=== PATIENT | male | born 1985 | race Caucasian/White ===

== ENCOUNTER 2017-04-09 17:04 | Inpatient (IN) | payer BC ==
[2017-04-09] MEDS ORDERED: DIPH,PERTUS(ACELL)TETVAC-LF 0.5 ML VIAL IM ONE (17:27)
[2017-04-09] MEDS ORDERED: HYDROmorphone 2 MG/ML 1 ML SYRINGE IVP STA ×2 (17:28→19:28)
[2017-04-09] MEDS ORDERED: ceFAZolin 2,000 MG in DEXTROSE/WATER 1 50ML.BAG IVPB STA (17:28)
[2017-04-09] MEDS ORDERED: ceFAZolin IN SWFI 2 GM/20 ML SYRINGE IVP ONE ×2 (17:30→22:30)
--- NOTE | 2017-04-09 17:32 | ED ---
General Adult HPI - General Chief complaint: Wound/Laceration Stated complaint: Laceration Time Seen by Provider: 04/09/17 17:13 Source: patient, family, RN notes reviewed, old records reviewed Mode of arrival: ambulatory Limitations: no limitations - History of Present Illness Initial comments: This is a 31-year-old male presents emergency Department chief complaint of right knee laceration. Patient reports that he was up and cutting down branches from a tree. He reports that he was approximately 60 feet high. He reports that he was using a chainsaw, and chainsaw came down and lacerated the lateral aspect of his right knee. He reports is painful with range of motion. He does report he has full range of motion in the toes and foot and ankle. Denies any numbness or tingling. His tetanus shot is not up-to-date. He reports that he slowly decline from the tree, did not have any falls or other injuries associated with this accident. Patient states that he has had previous orthopedic surgeries by Dr. Carrington. Patient denies any recent fever , chills, shortness of breath, chest pain, back pain, abdominal pain, nausea vomiting, numbness or tingling, dysuria or hematuria, constipation or diarrhea, headaches or visual changes, or any other current symptoms - Related Data Home Medications Medication Instructions Recorded Confirmed No Known Home Medications [No 04/09/17 04/09/17 Known Home Medications] Allergies Allergy/AdvReac Type Severity Reaction Status Date / Time No Known Allergies Allergy Verified 04/09/17 17:36 Review of Systems ROS Statement: Those systems with pertinent positive or pertinent negative responses have been documented in the HPI. ROS Other: All systems not noted in ROS Statement are negative. Past Medical History Past Medical History: Musculoskeletal Disorder, Seizure Disorder Additional Past Medical History / Comment(s): "SPORT-INJURY SEIZURE 2000". LT DISTAL BICEPS TENDON RUPTURE. History of Any Multi-Drug Resistant Organisms: None Reported Past Surgical History: Orthopedic Surgery Additional Past Surgical History / Comment(s): WISDOM TEETH. RT SHOULDER SURGERY Past Anesthesia/Blood Transfusion Reactions: No Reported Reaction Past Psychological History: Anxiety Smoking Status: Never smoker Past Alcohol Use History: Occasional Past Drug Use History: None Reported - Past Family History Mother Family Medical History: No Reported History General Exam - General Exam Comments Initial Comments: This patient is a 31-year-old male. No acute distress. Limitations: no limitations General appearance: alert, in no apparent distress Head exam: Present: atraumatic, normocephalic, normal inspection Eye exam: Present: normal appearance, PERRL, EOMI. Absent: scleral icterus, conjunctival injection, periorbital swelling ENT exam: Present: normal exam, mucous membranes moist Neck exam: Present: normal inspection. Absent: tenderness, meningismus, lymphadenopathy Respiratory exam: Present: normal lung sounds bilaterally. Absent: respiratory distress, wheezes, rales, rhonchi, stridor Cardiovascular Exam: Present: regular rate, normal rhythm, normal heart sounds. Absent: systolic murmur, diastolic murmur, rubs, gallop, clicks GI/Abdominal exam: Present: soft, normal bowel sounds. Absent: distended, tenderness, guarding, rebound, rigid Extremities exam: Present: full ROM, normal capillary refill. Absent: normal inspection, tenderness, pedal edema, joint swelling, calf tenderness Right Upper Leg exam: Present: normal inspection, full ROM Knee exam: Present: laceration (12 cm laceration over the lateral aspect of the right knee. Underneath the patella. Patient does have some flexion and extension within the knee.). Absent: normal inspection Lower Leg exam: Present: normal inspection, full ROM Ankle exam: Present: normal inspection, full ROM Neurovascular tendon exam: Present: no vascular compromise Back exam: Present: normal inspection Neurological exam: Present: alert Psychiatric exam: Present: normal affect, normal mood Skin exam: Present: warm, dry, intact, normal color. Absent: rash Course Vital Signs 04/09/17 04/09/17 17:10 18:44 Temperature 98 F Pulse Rate 107 H 96 Respiratory 18 18 Rate Blood Pressure 104/60 123/73 O2 Sat by Pulse 99 99 Oximetry Procedures - Laceration Laceration #1 Site: lower extremity (right knee) Size (cm): 8 Description: irregular Depth: involves muscle layer Anesthetic Used: benzocaine 0.25% Anesthesia Technique: local infiltration Amount (mls): 15 Pre-repair: wound explored, irrigated extensively Type of Sutures: nylon, vicryl Size of Sutures: 3-0 Number of Sutures: 12 (6 burried vicryl sutures, 6 nylon sutures) Complications: pain Patient Tolerated Procedure: well, no complications Medical Decision Making - Medical Decision Making This patient is a 31-year-old male presents with right knee laceration after he had an chain saw injury 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 Patient's laceration measures approximately 8 cm. X-rays are reviewed and negative for any bony abnormalities. He did have some air in the prepatellar bursa. Patient does have approximately 15 of flexion and is able to extend the knee. Patient's wound was thoroughly irrigated, and I used 6-0 Vicryl sutures as well as 6 nylon sutures to loosely approximate the wound. I did attempt to debride the necrotic skin around the area as well. Case discussed with Dr. Nathalia Barajas is physician housing assistant Gamal balderrama. We will admit the patient at this time and they will take him to surgery tomorrow afternoon for wound debridement and irrigation. Patient was given IV Kefzol. An updated on his tetanus shot. - Lab Data Result diagrams: 04/09/17 17:40 04/09/17 17:40 Lab Results 04/09/17 04/09/17 04/09/17 Range/Units 17:40 17:40 17:40 WBC 6.9 (3.8-10.6) k/uL RBC 5.41 (4.30-5.90) m/uL Hgb 15.4 (13.0-17.5) gm/dL Hct 48.1 (39.0-53.0) % MCV 88.9 (80.0-100.0) fL MCH 28.5 (25.0-35.0) pg MCHC 32.0 (31.0-37.0) g/dL RDW 15.0 (11.5-15.5) % Plt Count 241 (150-450) k/uL Neutrophils % 74 % Lymphocytes % 18 % Monocytes % 5 % Eosinophils % 1 % Basophils % 1 % Neutrophils # 5.1 (1.3-7.7) k/uL Lymphocytes # 1.3 (1.0-4.8) k/uL Monocytes # 0.3 (0-1.0) k/uL Eosinophils # 0.1 (0-0.7) k/uL Basophils # 0.0 (0-0.2) k/uL PT 9.7 (9.0-12.0) sec INR 1.0 (<1.2) APTT 21.0 L (22.0-30.0) sec Sodium 140 (137-145) mmol/L Potassium 3.8 (3.5-5.1) mmol/L Chloride 102 (98-107) mmol/L Carbon Dioxide 26 (22-30) mmol/L Anion Gap 12 mmol/L BUN 17 (9-20) mg/dL Creatinine 1.02 (0.66-1.25) mg/dL Est GFR (MDRD) Af Amer >60 (>60 ml/min/1.73 sqM) Est GFR (MDRD) Non-Af >60 (>60 ml/min/1.73 sqM) Glucose 143 H (74-99) mg/dL Calcium 9.9 (8.4-10.2) mg/dL - Radiology Data Radiology results: report reviewed Soft tissue air within the suprapatellar bursa. No fracture seen. No evidence of foreign body. Disposition Clinical Impression: Laceration of right knee Disposition: ADMITTED IP TO THIS [facility] Condition: Good Referrals: Megan Oliveira DO [Primary Care Provider] - 1-2 days Time of Disposition: 19:43
[2017-04-09 17:51] LABS: Basophils % (A) 1 %; Eosinophils # (A) 0.1 k/uL (0-0.7); Eosinophils % (A) 1 %; HCT 48.1 % (39.0-53.0); HGB 15.4 gm/dL (13.0-17.5); Lymphocytes # (A) 1.3 k/uL (1.0-4.8); Lymphocytes % (A) 18 %; MCH 28.5 pg (25.0-35.0); MCV 88.9 fL (80.0-100.0); Mean Platelet Volume 7.5; Monocytes # (A) 0.3 k/uL (0-1.0); Monocytes % (A) 5 %; Neutrophils # (A) 5.1 k/uL (1.3-7.7); Neutrophils % (A) 74 %; Platelet Count 241 k/uL (150-450); RBC 5.41 m/uL (4.30-5.90); WBC 6.9 k/uL (3.8-10.6)
[2017-04-09 18:03] LABS: Anion Gap 12 mmol/L; Blood Urea Nitrogen 17 mg/dL (9-20); Calcium 9.9 mg/dL (8.4-10.2); Carbon Dioxide 26 mmol/L (22-30); Chloride 102 mmol/L (98-107); Glucose 143 mg/dL (74-99); Potassium 3.8 mmol/L (3.5-5.1); Sodium 140 mmol/L (137-145)
--- NOTE | 2017-04-09 18:19 | XR ---
EXAMINATION TYPE: XR knee complete RT DATE OF EXAM: 04/09/2017 COMPARISON: NONE HISTORY: Knee pain TECHNIQUE: 3 views FINDINGS: I see no fracture nor dislocation. There is air in the suprapatellar region consistent with air within the knee joint space. There is probably a knee joint effusion. Joint spaces are normal. IMPRESSION: Soft tissue air within the suprapatellar bursa. No fracture seen. No evidence of a foreig n body.
[2017-04-09 18:23] LABS: Prothrombin Time 9.7 sec (9.0-12.0)
[2017-04-09] MEDS ORDERED: HYDROmorphone 1 MG/ML 1 ML SYRINGE IVP STA (19:28)
[2017-04-09] MEDS ORDERED: BUPIVACAINE (PF) 0.5% 30 ML VIAL SQ STA (19:28)
[2017-04-09] MEDS ORDERED: HYDROmorphone 0.5 MG/0.5 ML SYRINGE IVP STA (19:30)
[2017-04-09] MEDS ORDERED: ONDANSETRON 4 MG/2 ML VIAL IVP PRN (19:43)
[2017-04-09] MEDS ORDERED: IBUPROFEN 400 MG TAB PO PRN (19:43)
[2017-04-09] MEDS ORDERED: NALOXONE 0.4 MG/ML 1 ML VIAL IV PRN (19:43)
[2017-04-09] MEDS ORDERED: HYDROmorphone 2 MG/ML 1 ML SYRINGE IVP PRN (19:43)
[2017-04-09] MEDS ORDERED: HYDROmorphone 0.5 MG/0.5 ML SYRINGE IVP PRN (19:43)
[2017-04-09] MEDS: KETOROLAC 30 MG/ML 1 ML VIAL IVP PRN (23:13)
[2017-04-09] MEDS: SODIUM CHLORIDE 0.9% 1,000 ML IV SCH (23:21)
[2017-04-09 23:50] VITALS: BMI 35.4
[2017-04-10] MEDS: KETOROLAC 30 MG/ML 1 ML VIAL IVP PRN (04:56)
[2017-04-10] MEDS ORDERED: ceFAZolin IN SWFI 2 GM/20 ML SYRINGE IVP ONE ×2 (05:30→13:00)
[2017-04-10] MEDS: PANTOPRAZOLE 40 MG/10 ML VIAL IV SCH (09:07)
[2017-04-10] MEDS: SODIUM CHLORIDE 0.9% 1,000 ML IV SCH ×2 (09:07→17:01)
--- NOTE | 2017-04-10 13:09 | P.HPOR ---
History of Present Illness H&P Date: 04/10/17 Chief Complaint: right lateral knee laceration 31-year-old patient sustained an injury to the lateral aspect of his right knee yesterday. Apparently he was cutting down some branches with a chainsaw and the chainsaw hit the lateral aspect of the right knee causing a traumatic injury. Patient only reports pain in the right lateral knee area at this time. The patient denies any other pain or problems at this point. Review of Systems Constitutional: Reports as per HPI Past Medical History Past Medical History: Musculoskeletal Disorder, Seizure Disorder Additional Past Medical History / Comment(s): "SPORT-INJURY SEIZURE 2000". LT DISTAL BICEPS TENDON RUPTURE. Right shoulder surgery. History of Any Multi-Drug Resistant Organisms: None Reported Past Surgical History: Orthopedic Surgery Additional Past Surgical History / Comment(s): WISDOM TEETH. RT SHOULDER SURGERY Past Anesthesia/Blood Transfusion Reactions: No Reported Reaction Past Psychological History: Anxiety Smoking Status: Never smoker Past Alcohol Use History: Occasional Additional Past Alcohol Use History / Comment(s): Former CHEW TOBACCO DAILY quit 2 years ago. Past Drug Use History: None Reported - Past Family History Mother Family Medical History: No Reported History Medications and Allergies Home Medications Medication Instructions Recorded Confirmed Type No Known Home Medications [No 04/09/17 04/09/17 History Known Home Medications] Allergies Allergy/AdvReac Type Severity Reaction Status Date / Time No Known Allergies Allergy Verified 04/09/17 17:36 Physical Examination Osteopathic Statement: *. No significant issues noted on an osteopathic structural exam other than those noted in the History and Physical/Consult. there is approximately 12 cm jagged laceration over the lateral aspect of the right knee. This difficult to assess the depth of the laceration. Patient is able to extend the knee actively. Homans and Jayme negative. Patient is able to move his ankle and toes with no pain. Distal neurovascular exam appears intact. Logrolling of the right hip is without pain. Results - Labs Labs: Abnormal Lab Results - Last 24 Hours (Table) 04/09/17 04/09/17 Range/Units 17:40 17:40 APTT 21.0 L (22.0-30.0) sec Glucose 143 H (74-99) mg/dL H & H 04/09/17 Range/Units 17:40 Hgb 15.4 (13.0-17.5) gm/dL Hct 48.1 (39.0-53.0) % Coagulation 04/09/17 Range/Units 17:40 INR 1.0 (<1.2) Result Diagrams: 04/09/17 17:40 04/09/17 17:40 - Diagnostic results Knee x-ray: report reviewed, image reviewed (no acute osseous abnormality identified.) Assessment and Plan Assessment: Lateral right knee area traumatic laceration Plan: Proceed with surgical exploration of the wound with irrigation debridement and repair I did review the procedure, risks, complications and recovery. All questions were answered with the patient and his family's satisfaction. Time with Patient: Less than 30
[2017-04-10] MEDS ORDERED: ceFAZolin 3,000 MG in SODIUM CHLORIDE 0.9% IRRIGATIO 3,000 ML IRRIGATION ONE ×4 (13:30)
[2017-04-10] MEDS ORDERED: IV FLUID CONTINUATION 1,000 ML IV ONE ×2 (13:30)
[2017-04-10] MEDS ORDERED: HYDROmorphone (PF) 1 MG/ML ONE (14:00)
[2017-04-10] MEDS ORDERED: LIDOCAINE 1% INJ 10MG/ML (20 ML MDV) ONE (14:00)
[2017-04-10] MEDS ORDERED: SUCCINYLCHOLINE CHLORIDE 100 MG/5 ML SYR IV ONE (14:00)
[2017-04-10] MEDS ORDERED: MIDAZOLAM 2 MG/2 ML VIAL ONE (14:00)
[2017-04-10] MEDS ORDERED: PROPOFOL 10 MG/ML 20 ML VIAL IV ONE (14:00)
[2017-04-10] MEDS ORDERED: fentaNYL (PF) 50 MCG/ML 2 ML AMP ONE (14:00)
[2017-04-10] MEDS ORDERED: LACTATED RINGERS 1,000 ML IV ONE (14:00)
[2017-04-10] MEDS ORDERED: BUPIVACAINE (PF) 0.5% 30 ML VIAL SQ ONE (14:34)
[2017-04-10] MEDS ORDERED: ONDANSETRON 4 MG/2 ML VIAL IVP PRN (14:56)
[2017-04-10] MEDS ORDERED: HYDROcodone/APAP 5-325MG 1 EACH TAB PO PRN (14:56)
[2017-04-10] MEDS ORDERED: hydrOXYzine PAMOATE 25 MG CAP PO PRN (14:56)
[2017-04-10] MEDS ORDERED: HYDROmorphone 2 MG/ML 1 ML SYRINGE IVP PRN (14:56)
[2017-04-10] MEDS ORDERED: HYDROmorphone 0.5 MG/0.5 ML SYRINGE IVP PRN ×2 (14:56)
--- NOTE | 2017-04-10 14:56 | P.OP ---
Date of Procedure: 04/10/17 Preoperative Diagnosis: Right lateral knee laceration Postoperative Diagnosis: 1. Right knee lateral retinacular laceration/tear 2. Right lateral knee 12 cm skin laceration Procedure(s) Performed: 1. Repair right knee lateral retinacular tear/laceration 2. Repair right knee 12 cm skin laceration 3. Irrigation and incisional debridement right lateral knee wound Anesthesia: RADHAA, local Surgeon: Melvin Lorenzo Estimated Blood Loss (ml): 10 Pathology: none sent Condition: stable Disposition: PACU Indications for Procedure: 31-year-old patient seen with a traumatic right lateral knee laceration. I recommended exploration with irrigation debridement and repair. I reviewed the procedure, risks, complications and recovery. Patient was agreeable and consent was obtained. Operative Findings: see description of procedure Description of Procedure: The patient was taken to the operative suite. Patient underwent a general anesthetic by the department of anesthesia. The patient received preoperative IV antibiotics. A well-padded tourniquet was placed on the proximal right thigh. The right lower extremity was now prepped and draped in the normal sterile orthopedic fashion. We now explored our lateral laceration which was about a 12 cm jagged laceration just along the lateral aspect of the knee. Upon further deep exploration there was a traumatic laceration of the lateral retinaculum measuring approximately 4 cm. There was communication into the joint. I now irrigated the wound with pulse lavage mechanical irrigation. I irrigated with that small retinacular defect the joint itself as well. I now irrigated the whole wound out including intra-articular with Irricept. Once that had set for greater than a couple of minutes I irrigated the wound out again including intra-articular with pulse lavage mechanical irrigation. I now debrided the jagged skin laceration utilizing a #15 blade performing an incisional debridement of the skin margins and directly subcutaneous soft tissues. I now explored the lateral retinacular defect one more time and that was repaired utilizing #1 Vicryl. I took the knee through range of motion and noted good stability of my lateral retinacular repair. I now meticulously repaired the subcutaneous soft tissues with 2-0 Vicryl. I now repaired the skin laceration with skin eboni. I infiltrated the subcutaneous soft tissues with half percent plain Marcaine totaling 25 mL. I applied sterile dressings followed by loose web roll and Jorje bandage. No tourniquet was utilized. The patient was awakened, transferred to a bed and then recovery in stable condition.
[2017-04-10] MEDS: HYDROcodone/APAP 5-325MG 1 EACH TAB PO PRN (17:17)
[2017-04-10] MEDS: ceFAZolin IN SWFI 2 GM/20 ML SYRINGE IVP SCH (17:17)
[2017-04-10] MEDS: LACTATED RINGERS 1,000 ML IV SCH (17:18)
[2017-04-10] MEDS: IBUPROFEN 800 MG TAB PO PRN (20:49)
[2017-04-11] MEDS: ceFAZolin IN SWFI 2 GM/20 ML SYRINGE IVP SCH (00:25)
[2017-04-11] MEDS: LACTATED RINGERS 1,000 ML IV SCH ×2 (03:16→08:26)
[2017-04-11 07:22] VITALS: BP 123/80; PULSE 80; RESP 14; TEMP 97.8
[2017-04-11] MEDS: HYDROcodone/APAP 5-325MG 1 EACH TAB PO PRN (07:29)
[2017-04-11] MEDS: PANTOPRAZOLE 40 MG/10 ML VIAL IV SCH (07:30)
[2017-04-11] MEDS ORDERED: ENOXAPARIN 40 MG/0.4 ML SYRINGE SQ SCH (09:00)
[2017-04-11] MEDS: IBUPROFEN 800 MG TAB PO PRN (09:58)
--- NOTE | 2017-04-11 10:35 | P.PN ---
Subjective Progress Note Date: 04/11/17 Principal diagnosis: Status post irrigation and debridement and laceration repair right knee Patient seen today resting in his hospital bed, he appears comfortable. His family is present with him at bedside. He notes more stiffness along the lateral and posterior aspect of the knee. He denies any chest pain, shortness of breath, fever or chills. Objective - Vital Signs Vital signs: Vital Signs Temp 97.8 F 04/11/17 07:19 Pulse 80 04/11/17 07:19 Resp 14 04/11/17 07:19 BP 123/80 04/11/17 07:19 Pulse Ox 97 04/11/17 07:19 Intake & Output 04/10/17 04/11/17 04/11/17 18:59 06:59 18:59 Intake Total 901 800 Output Total 10 Balance 891 800 Intake: IV 301 Intake, IV Titration 600 800 Amount Lactated Ringers 1,000 ml 800 @ 100 mls/hr IV .Q10H DELISA Rx#:[id number] Sodium Chloride 0.9% 1, 600 000 ml @ 120 mls/hr IV . Q8H20M DELISA Rx#:[id number] Output: Estimated Blood Loss 10 Other: Voiding Method Urinal # Voids 1 2 - Exam Right lower extremity: Initial postop bandages in place with Jorje bandage. No significant swelling noted in the foot and ankle. His calf is soft, no tenderness with palpation. His dorsal pedis pulses 2+, sensory exam to light touch is intact. - Labs CBC & Chem 7: 04/09/17 17:40 04/09/17 17:40 Assessment and Plan Plan: Assessment: 1. Postop day #1 status post irrigation and debridement and laceration repair right knee Plan: 1. Pain control, oral pain medication along with Motrin will be used postop 2. Weight-bear as tolerated, utilize walker or crutches 3. Wound care instructions were discussed 4. Activity restrictions were discussed 5. Patient stable for discharge home today Time with Patient: Less than 30
--- NOTE | 2017-04-11 10:40 | P.DS ---
Providers Date of admission: 04/09/17 20:39 Expected date of discharge: 04/11/17 Attending physician: Melvin Lorenzo Primary care physician: Megan Oliveira Hospital Course: Date of admission: 04/10/2017 Date of discharge: 04/11/2017 Admission diagnosis: Right knee laceration Discharge diagnosis: Status post irrigation and debridement right lateral knee, laceration repair, medial retinacular repair Attending physician: Dr. Lorenzo Surgical procedures: Irrigation and debridement right lateral knee, laceration repair and medial retinacular repair Brief history: Patient is a 31-year-old male who was seen and evaluated at [facility] emergency room on 04/09/2017 after sustaining a work injury involving a chain saw. He had a laceration on the lateral aspect of his right knee. I was contacted by the emergency room staff regarding this patient, the case was discussed. Was determined he would need a surgical intervention, including irrigation and debridement along with repair of the laceration in the operating room. He was scheduled for this procedure on 04/10/2017. Hospital course: Details of patient's surgery can be found in operative report. Patient tolerated the procedure well and was subsequently transported to orthopedic floor. Patient's orthopeidc and medical care was provided daily. Patient had daily laboratory tests performed for evaluation of overall blood counts. Patient had daily physical therapy to include strengthening range of motion as well as education with walker ambulation. Patient was treated with Lovenox for their postoperative DVT prophylaxis during their inpatient stay. Patient was noted to have a relatively uneventful postoperative course. Patient reported satisfactory pain control with oral pain medications by postoperative day 0. Patient showed satisfactory progress with physical therapy. Patient moved steadily through the program and had no difficulty meeting the goals by postoperative day 1. Given patient's otherwise satisfactory course and having met physical therapy goals, plan is to discharge patient home on postoperative day 1. Discharge condition/disposition: Patient will be discharged home in stable condition. Discharge medications: Instructions are given on resumption of patient's normal daily medications per primary care recommendation, in addition patient will be prescribed [place] 5 mg/325 mg, Motrin 800 mg, Keflex 500mg. Discharge instructions: 1. Wound care and infection precautions, keep incision dry and covered while showering, no lotions, creams, moisturizers. No soaking, tubs, pools, hottubs. Do not scrub over the incision. 2. Weight-bear as tolerated with walker / cane until follow-up. 3. Ice and elevate when necessary. Do not exceed 20 minutes per hour with ice pack. 5. Pain meds and anticoagulants per prescription. 6. Pain medication has potential to cause constipation. Increase oral fluid and fiber intake. Contact primary care provider if you have not had a bowel movement within 48 hours after discharge 7. Follow up in office at 2 weeks postop with Gamal Corona PA-C 8. Follow up with your primary care doctor 7-10 days after discharge. 9. Contact [facility] with any questions, . Procedures: Irrigation and debridement right knee, laceration repair, medial retinacular repair Patient Condition at Discharge: Good Plan - Discharge Summary New Discharge Prescriptions: New Cephalexin [Keflex] 500 mg PO Q6HR #60 cap Hydrocodone/Acetaminophen [[place] 5-325] 1 each PO Q6HR PRN #40 tab PRN Reason: Pain Ibuprofen 800 mg PO Q8HR PRN #40 tablet PRN Reason: Pain Discharge Medication List Cephalexin [Keflex] 500 mg PO Q6HR #60 cap 04/11/17 [Rx] Hydrocodone/Acetaminophen [[place] 5-325] 1 each PO Q6HR PRN #40 tab 04/11/17 [Rx] Ibuprofen 800 mg PO Q8HR PRN #40 tablet 04/11/17 [Rx] Follow up Appointment(s)/Referral(s): Megan Oliveira DO [Primary Care Provider] - 1-2 days Shyam Corona PAC [PHYSICIAN BELL MAKER] - 2 Weeks Patient Instructions/Handouts: Laceration (DC) Activity/Diet/Wound Care/Special Instructions: Discharge instructions: 1. Pain medication and anti-inflammatories as needed 2. Utilize crutch or walker when ambulating for the first week 3. Wound care instructions discussed, okay to remove initial postoperative management 2-3 days. 4. Follow-up at [facility] in 2 weeks for recheck,[phone] with any questions Discharge Disposition: HOME SELF-CARE
--- NOTE | 2017-04-14 09:54 | CDI ---
Last Revision, February 2017 Documentation Clarification Form Date: 04/14/2017 9:48:00 AM From: Raissa Bullard Phone: If you have questions regarding this query, please contact Shilpi Lopez Aviation Program Manager at [phone] between 8am and 5pm Admit Date: 04/09/2017 8:39:00 PM Patient Name: Dayron Lopez Visit Number: [id number] Discharge Date: ATTENTION: The Clinical Documentation Specialists (CDI) and [facility] Coding Staff appreciate your assistance in clarifying documentation. Please respond to the clarification below the line at the bottom and electronically sign. The CDI & [facility] Coding staff will review the response and follow-up if needed. Please note: Queries are made part of the Legal Health Record. If you have any questions, please contact the author of this message via ITS. Dr. Melvin Lorenzo Per your progress notes/operative note, a debridement was performed on the right knee. History/Risk Factors: Patient was admitted for traumatic laceration of the left knee. Clinical Indicators: 12 cm jagged laceration. Treatment: Debridement Five elements required for accurate and compliant documentation of a debridement : 1. Technique used (e.g., excisional, excised, cutting, etc.) 2. Instrument(s) used (e.g., scalpel, curette, etc.) 3. Nature of the tissue removed (e.g., necrotic, devitalized tissues, non- viable tissue, etc.) 4. Appearance and size of the wound (e.g., down to fresh bleeding tissue, 7cm x 10cm, etc.) 5. Depth of the debridement* (e.g., skin, subcutaneous tissue, fascia, muscle , bone, etc.) In order to capture the severity of condition and code the appropriate procedure ; could you please document the following: Excisional debridement (the removal of necrotic, devitalized tissue or slough by means of cutting away of tissue) Non-excisional debridement (the removal of necrotic, devitalized tissue or slough by means of flushing, brushing, or washing. (Irrigation) Other; please specify Unable to determine (no explanation for clinical findings) Please continue to document in your progress notes and discharge summary in order to capture severity of illness and risk of mortality. Include clinical findings that support your diagnosis. MTDD
--- NOTE | 2017-04-19 17:16 | CDI ---
Last Revision, February 2017 Documentation Clarification Form Date: 04/14/2017 9:48:00 AM From: Raissa Bullard Phone: If you have a question regarding this query, please contact Shilpi Lopez Boiler House Operator at [phone]. Admit Date: 04/09/2017 8:39:00 PM Patient Name: Dayron Lopez Visit Number: [id number] Discharge Date: 04/11/17 ATTENTION: The Clinical Documentation Specialists (CDI) and [facility] Coding Staff appreciate your assistance in clarifying documentation. Please respond to the clarification below the line at the bottom and electronically sign. The CDI & [facility] Coding staff will review the response and follow-up if needed. Please note: Queries are made part of the Legal Health Record. If you have any questions, please contact the author of this message via ITS. Dr. Melvin Lorenzo Per your progress notes/operative note, a debridement was performed on the right knee. History/Risk Factors: Patient was admitted for traumatic laceration of the left knee. Clinical Indicators: 12 cm jagged laceration. Treatment: Debridement Five elements required for accurate and compliant documentation of a debridement : 1. Technique used (e.g., excisional, excised, cutting, etc.) 2. Instrument(s) used (e.g., scalpel, curette, etc.) 3. Nature of the tissue removed (e.g., necrotic, devitalized tissues, non- viable tissue, etc.) 4. Appearance and size of the wound (e.g., down to fresh bleeding tissue, 7cm x 10cm, etc.) 5. Depth of the debridement* (e.g., skin, subcutaneous tissue, fascia, muscle , bone, etc.) In order to capture the severity of condition and code the appropriate procedure ; could you please document the following: Excisional debridement (the removal of necrotic, devitalized tissue or slough by means of cutting away of tissue) Non-excisional debridement (the removal of necrotic, devitalized tissue or slough by means of flushing, brushing, or washing. (Irrigation) Other; please specify Unable to determine (no explanation for clinical findings) Please continue to document in your progress notes and discharge summary in order to capture severity of illness and risk of mortality. Include clinical findings that support your diagnosis. MTDD
--- NOTE | 2017-04-30 10:05 | CDI ---
Last Revision, February 2017 Documentation Clarification Form Date: 04/14/2017 9:48:00 AM From: Raissa Bullard Phone: If you have a question regarding this query, please contact Shilpi Lopez Typing Office Worker at [phone] between 8am and 5pm. Admit Date: 04/09/2017 8:39:00 PM Patient Name: Dayron Lopez Visit Number: [id number] Discharge Date: ATTENTION: The Clinical Documentation Specialists (CDI) and [facility] Coding Staff appreciate your assistance in clarifying documentation. Please respond to the clarification below the line at the bottom and electronically sign. The CDI & [facility] Coding staff will review the response and follow-up if needed. Please note: Queries are made part of the Legal Health Record. If you have any questions, please contact the author of this message via ITS. Dr. Melvin Lorenzo Per your progress notes/operative note, a debridement was performed on the right knee. History/Risk Factors: Patient was admitted for traumatic laceration of the left knee. Clinical Indicators: 12 cm jagged laceration. Treatment: Debridement Five elements required for accurate and compliant documentation of a debridement : 1. Technique used (e.g., excisional, excised, cutting, etc.) 2. Instrument(s) used (e.g., scalpel, curette, etc.) 3. Nature of the tissue removed (e.g., necrotic, devitalized tissues, non- viable tissue, etc.) 4. Appearance and size of the wound (e.g., down to fresh bleeding tissue, 7cm x 10cm, etc.) 5. Depth of the debridement* (e.g., skin, subcutaneous tissue, fascia, muscle , bone, etc.) In order to capture the severity of condition and code the appropriate procedure ; could you please document the following: Excisional debridement (the removal of necrotic, devitalized tissue or slough by means of cutting away of tissue) Non-excisional debridement (the removal of necrotic, devitalized tissue or slough by means of flushing, brushing, or washing. (Irrigation) Other; please specify Unable to determine (no explanation for clinical findings) Please continue to document in your progress notes and discharge summary in order to capture severity of illness and risk of mortality. Include clinical findings that support your diagnosis. MTDD
== END 2017-04-11 11:10 | disposition home or self-care (01) | DRG 572 ==
LOC: EC 17:04 → 3SUR 20:39
PROVIDERS: ADMIT Orthopaedic Surgery; ATTEND Orthopaedic Surgery
PROC: 0JBN0ZZ Excision of Right Lower Leg Subcutaneous Tissue and Fascia, Open Approach (ICD-10-PCS; principal; 2017-04-09)
PROC: 0JQN0ZZ Repair Right Lower Leg Subcutaneous Tissue and Fascia, Open Approach (ICD-10-PCS; 2017-04-09)
PROC: 0MQN0ZZ Repair Right Knee Bursa and Ligament, Open Approach (ICD-10-PCS; 2017-04-09)
DX: S81.011A Laceration without foreign body, right knee, initial encounter (principal); F41.9 Anxiety disorder, unspecified; G40.909 Epilepsy, unspecified, not intractable, without status epilepticus; Z87.891 Personal history of nicotine dependence; W29.3XXA Contact with powered garden and outdoor hand tools and machinery, initial encounter; Y92.9 Unspecified place or not applicable
CPT/HCPCS: 12034; 36415; 80048; 85025; 85610; 85730; 90471; 90715; 96374; 96375; 96376; 99284

== ENCOUNTER 2022-01-19 14:53 | Emergency (ER) | payer OTHER ==
[2022-01-19 15:23] VITALS: TEMP 98.7
--- NOTE | 2022-01-19 15:56 | XR ---
EXAMINATION TYPE: XR ankle complete LT DATE OF EXAM: 01/19/2022 COMPARISON: NONE HISTORY: Pain FINDINGS: Three views of the ankle demonstrate the ankle mortise to be intact and symmetric. The joint spaces are preserved. Soft tissue edema noted. There is a lucency involving the posterior margin of the medi al malleolus suspicious for mildly displaced avulsion fracture. Spurs noted. IMPRESSION: 1. Findings suspicious for mildly displaced avulsion fracture medial malleolus of indeterminate age. Correlate with point tenderness. 2. Soft tissue swelling greater laterally with no definite evidence of fracture involving the fibula.
--- NOTE | 2022-01-19 16:56 | ED ---
General Adult HPI - General Chief complaint: Extremity Injury, Lower Stated complaint: Lt. Ankle Injury Time Seen by Provider: 01/19/22 16:22 Source: patient, RN notes reviewed Mode of arrival: ambulatory Limitations: no limitations - History of Present Illness Initial comments: Patient is a pleasant 36-year-old male presenting to the emergency department with concerns with left ankle pain. Onset of symptoms was 3 days ago. Patient was at work when he inverted his left ankle. Patient has had swelling. Patient has discomfort that is mostly mild however increase with ambulation. Patient is ambulatory with pain. No other area of injury or concern. No history of chronic ankle problem - Related Data Previous Rx's Medication Instructions Recorded Cephalexin [Keflex] 500 mg PO Q6HR #60 cap 04/11/17 Hydrocodone/Acetaminophen [[place] 1 each PO Q6HR PRN #40 tab 04/11/17 5-325] Ibuprofen 800 mg PO Q8HR PRN #40 tablet 04/11/17 Allergies Allergy/AdvReac Type Severity Reaction Status Date / Time No Known Allergies Allergy Verified 01/19/22 15:23 Review of Systems ROS Statement: Those systems with pertinent positive or pertinent negative responses have been documented in the HPI. ROS Other: All systems not noted in ROS Statement are negative. Constitutional: Denies: fever Eyes: Denies: eye pain ENT: Denies: ear pain Respiratory: Denies: cough Cardiovascular: Denies: chest pain Endocrine: Denies: fatigue Gastrointestinal: Denies: abdominal pain Musculoskeletal: Reports: as per HPI Past Medical History Past Medical History: Musculoskeletal Disorder, Seizure Disorder Additional Past Medical History / Comment(s): "SPORT-INJURY SEIZURE 2000". LT DISTAL BICEPS TENDON RUPTURE. Right shoulder surgery. History of Any Multi-Drug Resistant Organisms: None Reported Past Surgical History: Orthopedic Surgery Additional Past Surgical History / Comment(s): WISDOM TEETH. RT SHOULDER SURGERY Past Anesthesia/Blood Transfusion Reactions: No Reported Reaction Past Psychological History: Anxiety Smoking Status: Never smoker Past Alcohol Use History: Occasional Past Drug Use History: None Reported - Past Family History Mother Family Medical History: No Reported History General Exam Limitations: no limitations General appearance: alert, in no apparent distress Head exam: Present: normocephalic Eye exam: Present: normal appearance Neck exam: Present: normal inspection Respiratory exam: Present: normal lung sounds bilaterally Cardiovascular Exam: Present: regular rate, normal rhythm Expanded Peripheral pulses: 2+: Dorsalis Pedis (R), Dorsalis Pedis (L) GI/Abdominal exam: Present: soft. Absent: tenderness Extremities exam: Present: tenderness (Mild left ankle medial and lateral malleolar tenderness. Mild to moderate swelling. Achilles intact with dobbs test. No foot tenderness.) Neurological exam: Present: alert. Absent: motor sensory deficit Psychiatric exam: Present: normal affect, normal mood Skin exam: Present: normal color Course Vital Signs 01/19/22 15:21 Temperature 98.7 F Pulse Rate 90 Respiratory 20 Rate Blood Pressure 142/87 O2 Sat by Pulse 100 Oximetry Medical Decision Making - Medical Decision Making Patient reevaluated and updated. Patient still refusing pain medication. Patient advised no confusion. Patient is agreeable to ankle stirrup follow-up with orthopedics. - Radiology Data Radiology results: image reviewed (X-ray left ankle shows small avulsion, and complete medial malleolus, undetermined age) Disposition Clinical Impression: Avulsion fracture of medial malleolus Disposition: HOME SELF-CARE Condition: Stable Instructions (If sedation given, give patient instructions): Ankle Fracture ( ED) Additional Instructions: Please do follow-up with orthopedics in the next couple days for recheck and further evaluation and further recommendations. Limit ambulation. Ice to affected area. [id number] Motrin as needed. Return for increased pain, swelling, worsening symptoms or any other concerns. Is patient prescribed a controlled substance at d/c from ED?: No Referrals: Micheal Jamil Jr, DO [Primary Care Provider] - 1-2 days Marv Shay MD [Medical Doctor] - 1-2 days Time of Disposition: 17:30
[2022-01-19 17:45] VITALS: BP 138/78; PULSE 87; RESP 18
== END 2022-01-19 17:44 | disposition home or self-care (01) ==
LOC: EC 14:53
DX: S82.52XA Displaced fracture of medial malleolus of left tibia, initial encounter for closed fracture (principal); X50.9XXA Other and unspecified overexertion or strenuous movements or postures, initial encounter; Y92.69 Other specified industrial and construction area as the place of occurrence of the external cause; Y99.0 Civilian activity done for income or pay
CPT/HCPCS: 99283